=== PATIENT | male | born 1985 | race Caucasian/White ===

== ENCOUNTER 2017-11-27 03:05 | Emergency (ER) | payer MEDICAID ==
[~2017-11-27] VITALS: Ht 165.1 cm; Wt 72.6 kg
[~2017-11-27 03:05] MED LIST: ATAZ150C; EMTR1TAB12 PO; RITO100T PO
[2017-11-27 03:12] VITALS: BP 142/66
== END 2017-11-27 03:38 ==
LOC: ER 03:06
DX: F15.10 Other stimulant abuse, uncomplicated (principal); Z60.2 Problems related to living alone; F10.10 Alcohol abuse, uncomplicated; F17.210 Nicotine dependence, cigarettes, uncomplicated; Y90.9 Presence of alcohol in blood, level not specified
CPT/HCPCS: 99283; A4606; Z7610